=== PATIENT | female | born 1990 | race Caucasian/White ===

== ENCOUNTER → 2016-10-26 | Outpatient (CLI) | payer BC ==
--- NOTE | 2016-10-26 11:51 | DI ---
US ABDOMEN LIMITED,10/26/2016 9:50 AM: Clinical History: Right upper quadrant pain. Previous Exam: None at this facility. Findings: Multiple grayscale and color Doppler sonographic images are obtained of the right upper quadrant, and demonstrate a normal-appearing liver. The gallbladder is unremarkable. Visualized portions of the pa ncreas are normal. The right kidney is also normal measuring 10.3 cm in length. Renal cortex is unrem arkable. Impression: Normal right upper quadrant ultrasound.
== END ==
LOC: US 09:46
PROVIDERS: ATTEND Physician Assistant Medical
DX: R10.11 Right upper quadrant pain (principal)
CPT/HCPCS: 76705